=== PATIENT | male | born 2000 | race Two or more races ===

== ENCOUNTER 2021-08-18 23:18 | Emergency (ER) | payer OTHER ==
[~2021-08-18] VITALS: Ht 182.9 cm; Wt 68.9 kg
[2021-08-19] MEDS ORDERED: ONDANSETRON ODT4 MG PO (03:58)
[2021-08-19] MEDS ORDERED: LEVSIN/SL0.125 MG SL (03:58)
[2021-08-19] MEDS ORDERED: CIPRO500 MG PO (03:58)
== END 2021-08-19 04:07 | disposition home or self-care (01) ==
LOC: ER 23:18
DX: R10.30 Lower abdominal pain, unspecified (principal)